=== PATIENT | male | born 1970 | race Caucasian/White ===

== ENCOUNTER → 2020-06-16 | Day surgery (SDC) | payer BC, OTHER ==
[~2020-06-16] MED LIST: FENTANYL CITRATE/PF 100MCG/2 ML INJ ONE; HYOSCYAMINE 0.125 MG TAB ONE; LIDOCAINE HCL 2% LOCAL INJ 5 ML SDV VIAL INJ ONE; LISINOPRIL10 MG PO; MIDAZOLAM HCL 2 MG/2 ML VIAL ONE; PROPOFOL IV EMULSION 10 MG/ML 20 ML VIAL ONE
[2020-06-16 13:00] VITALS: BP 115/68
== END | disposition home or self-care (01) ==
LOC: OR 09:34
PROVIDERS: ATTEND Internal Medicine Gastroenterology
DX: Z12.11 Encounter for screening for malignant neoplasm of colon (principal); K50.10 Crohn's disease of large intestine without complications; K64.8 Other hemorrhoids; I10 Essential (primary) hypertension; Z01.812 Encounter for preprocedural laboratory examination; Z11.59 Encounter for screening for other viral diseases; Z68.29 Body mass index [BMI] 29.0-29.9, adult
CPT/HCPCS: 45380; J2001; J2250; J2704; J3010; U0002